=== PATIENT | male | born 1970 | race Caucasian/White ===

== ENCOUNTER 2018-09-10 15:08 | Outpatient (CLI) | payer OTHER ==
[~2018-09-10 15:08] MED LIST: Iopamidol 370 76% 100 ML VIAL ONE
--- NOTE | 2018-09-10 16:14 | CT ---
CTA CHEST WITH CONTRAST, AND 3-D VOLUME RENDERING CLINICAL INDICATION: Short of breath; Elevated D-dimer Comparison exam: None FINDINGS: Pulmonary embolus:No significant filling defect is identified within the pulmonary arteries. Pulmonary parenchymal consolidation:Curvilinear density of the right anterior lung with adjacent dyst rophic calcification. Punctate parenchymal nodularity is seen within the lungs bilaterally, nonspecific, a significant component of which is high density and may relate to granulomatous calcifi cation. Pleural effusion: None Pneumothorax: None Osseous structures: No acute process. Small parenchymal hypodensities are partially imaged within each kidney, too small to definitively ch aracterize. Small fat density of the left diaphragmatic taylor is incidentally noted. IMPRESSION: No acute pulmonary embolus. Numerous punctate bilateral pulmonary nodules, too small to definitively characterize, although signi ficant component of which does indicate evidence of prior granulomatous disease.
== END 2018-09-10 15:09 | disposition home or self-care (01) ==
LOC: SCSCT 15:08
PROVIDERS: ATTEND Family Medicine
DX: R07.9 Chest pain, unspecified (principal); R06.02 Shortness of breath; R00.0 Tachycardia, unspecified; R91.8 Other nonspecific abnormal finding of lung field
CPT/HCPCS: 71275; Q9967